=== PATIENT | female | born 2000 ===

== ENCOUNTER → 2021-06-22 | Emergency (ER) | payer OTHER | END | disposition left against medical advice (07) | LOC: ER 18:05 | DX: Z53.21 Procedure and treatment not carried out due to patient leaving prior to being seen by health care provider (principal) ==

== ENCOUNTER 2021-09-28 02:26 | Emergency (ER) | payer OTHER ==
[~2021-09-28] VITALS: Ht 165.1 cm; Wt 53.5 kg
[2021-09-28] MEDS ORDERED: ACETAMINOPHEN650 M2 (04:51)
[2021-09-28] MEDS ORDERED: DUI500 PO (07:08)
[2021-09-28] MEDS ORDERED: ACETAMINOPHEN650 M2 PO (07:08)
== END 2021-09-28 07:14 | disposition home or self-care (01) ==
LOC: ER 02:26
DX: O23.40 Unspecified infection of urinary tract in pregnancy, unspecified trimester (principal); Z3A.00 Weeks of gestation of pregnancy not specified; O26.899 Other specified pregnancy related conditions, unspecified trimester

== ENCOUNTER 2021-11-09 09:44 | Outpatient (CLI) | payer OTHER ==
[~2021-11-09 09:44] MED LIST: ACETAMINOPHEN650 M2; ACETAMINOPHEN650 M2 PO; DUI500 PO
== END 2021-11-09 11:09 | disposition home or self-care (01) ==
LOC: PRENATAL 09:44
PROVIDERS: ATTEND Obstetrics & Gynecology Maternal & Fetal Medicine
DX: O35.0XX1 Maternal care for (suspected) central nervous system malformation in fetus, fetus 1 (principal); O35.3XX1 Maternal care for (suspected) damage to fetus from viral disease in mother, fetus 1; O98.512 Other viral diseases complicating pregnancy, second trimester; Z36.89 Encounter for other specified antenatal screening; Z3A.24 24 weeks gestation of pregnancy

== ENCOUNTER 2022-01-31 13:44 | Inpatient (IN) | payer OTHER ==
[~2022-01-31] VITALS: Ht 165.1 cm; Wt 2.3 kg
[2022-01-31] MEDS ORDERED: PRENATAL TABLE1 EAC2 PO (14:21)
[2022-02-05] MEDS ORDERED: LABETALOL HCL200 MG PO (13:23)
== END 2022-02-05 13:36 | disposition home or self-care (01) | DRG 786 ==
LOC: LDR 13:44 → O/R 02-02 08:44 → OB/GYN 02-02 10:16
PROVIDERS: ADMIT Obstetrics & Gynecology; ATTEND Obstetrics & Gynecology
PROC: 4A1HXCZ Monitoring of Products of Conception, Cardiac Rate, External Approach (ICD-10-PCS; 2022-01-31)
PROC: BY4FZZZ Ultrasonography of Third Trimester, Single Fetus (ICD-10-PCS; 2022-01-31)
PROC: 10D00Z1 Extraction of Products of Conception, Low, Open Approach (ICD-10-PCS; principal; 2022-02-02 07:00)
DX: O14.13 Severe pre-eclampsia, third trimester (principal); O60.14X0 Preterm labor third trimester with preterm delivery third trimester, not applicable or unspecified; O26.843 Uterine size-date discrepancy, third trimester; O36.8130 Decreased fetal movements, third trimester, not applicable or unspecified; O13.3 Gestational [pregnancy-induced] hypertension without significant proteinuria, third trimester; Z3A.36 36 weeks gestation of pregnancy; Z37.0 Single live birth; Z20.822 Contact with and (suspected) exposure to COVID-19